=== PATIENT | female | born 2000 | race Caucasian/White ===

== ENCOUNTER 2024-06-02 23:02 | Emergency (ER) | payer BC, SELFPAY ==
[2024-06-02 23:05] VITALS: BP 134/94; PULSE 104; TEMP 36.6; O2SAT 98; BMI 40.4
--- NOTE | 2024-06-02 23:19 | ED_ITS ---
HPI HPI - General Adult General Chief complaint: Nausea/Vomiting/Diarrhea Stated complaint: VOMMITING Time Seen by Provider: 06/02/24 23:05 Source: patient Mode of arrival: walk-in Limitations: no limitations History of Present Illness HPI narrative: 23-year-old female presents to the emergency department for vomiting. She states that just over an hour ago she vomited and it looked dark and she was worried about the blood. Her mother recommended she come in. She is not complaining of abdominal pain and has had no blood in her stools and no dark color to them either. She has been quite nauseous on and off for the last week and perhaps the last month. LMP was in April, she does not know the date. Related Data Home Medications ?Medication ?Instructions ?Recorded ?Confirmed desvenlafaxine succinate 100 mg 100 mg PO Q24H 06/02/24 06/02/24 tablet,extended release 24 hr Previous Rx's ?Medication ?Instructions ?Recorded esomeprazole magnesium 20 mg 20 mg PO DAILY #20 caps 06/03/24 capsule,delayed release (Nexium) ondansetron 4 mg disintegrating 4 mg PO Q6H PRN nausea and 06/03/24 tablet vomiting #20 tabs Allergies Allergy/AdvReac Type Severity Reaction Status Date / Time No Known Drug Allergies Allergy Verified 06/02/24 23:12 Opioid HPI Opioid Management Most Recent Opioid Data: No Data to Display Review of Systems ROS Narrative A ten point review of systems is negative except as noted above. PFSH PFSH Social History Little interest or pleasure in doing things: not at all Feeling down, depressed, or hopeless: not at all Exam Narrative Exam Narrative: Nurses note and vital signs reviewed and patient is not hypoxic. General: The patient appears well and in no apparent distress. Patient is resting comfortably on cart. Skin: Warm, dry, no pallor noted. There is no rash noted. Head: Normocephalic, atraumatic Eye: Normal conjunctiva, no drainage Ears, Nose, Mouth, and Throat: oral mucosa is moist. Nares patent. Cardiovascular: Regular Rate and Rhythm Respiratory: Patient is in no distress, no accessory muscle use, lungs are clear to auscultation, no wheezing, rales or rhonchi Back: non-tender, no CVA tenderness bilaterally to percussion. GI: Obese and nontender, no tenderness in the epigastric area Musculoskeletal: The patient has no evidence of calf tenderness, no pitting edema, symmetrical pulses noted bilaterally Neurological: A&O, normal speech Psychiatric: Cooperative Constitutional Vital Signs, click to edit/add: Last Vital Signs Temp 98 F 06/02/24 23:05 Pulse 104 H 06/02/24 23:05 Resp 18 06/02/24 23:05 BP 134/94 H 06/02/24 23:05 Pulse Ox 98 06/02/24 23:05 O2 Del Method Room Air 06/02/24 23:05 Course Vital Signs Vital signs: Vital Signs Temperature 98 F 06/02/24 23:05 Pulse Rate 104 H 06/02/24 23:05 Respiratory Rate 18 06/02/24 23:05 Blood Pressure 134/94 H 06/02/24 23:05 Pulse Oximetry 98 06/02/24 23:05 Oxygen Delivery Method Room Air 06/02/24 23:05 Temperature 98 F 06/02/24 23:05 Pulse Rate 104 H 06/02/24 23:05 Respiratory Rate 18 06/02/24 23:05 Blood Pressure 134/94 H 06/02/24 23:05 Pulse Oximetry 98 06/02/24 23:05 Oxygen Delivery Method Room Air 06/02/24 23:05 Medical Decision Making MDM Narrative Medical decision making narrative: Her blood work is normal. Hemoglobin 13.6 and her test is negative. She was given IV fluids and IV Zofran and IV Pepcid here. She will be discharged home on Nexium and Zofran. She is being referred to general surgery for follow-up. Return to emergency department if symptoms worsen. Treatment diagnosis and follow-up were discussed with the patient. Differential Diagnosis Differential Diagnosis: Vomiting, GERD, ulcer Lab Data Lab results reviewed: Yes I reviewed the patient's lab results Labs: Lab Results 06/02/24 Range/Units 23:32 WBC 11.4 H (4.0-11.0) 10^3/uL RBC 5.00 (4.20-5.40) 10^6/uL Hgb 13.6 (12.0-16.0) g/dL Hct 40.8 (36.0-48.0) % MCV 81.6 (81.0-99.0) fL MCH 27.2 (26.7-34.0) pg MCHC 33.3 (29.9-35.2) g/dL RDW 14.6 (11.0-15.0) % Plt Count 360 (150-450) 10^3/uL MPV 9.9 (9.5-13.5) fL Neut % (Auto) 73.3 (43.0-75.0) % Lymph % (Auto) 17.6 L (20.5-60.0) % Terry % (Auto) 8.2 (1.7-12.0) % Eos % (Auto) 0.4 L (0.9-7.0) % Baso % (Auto) 0.3 (0.2-2.0) % Neut # (Auto) 8.4 H (1.4-6.5) 10^3/uL Lymph # (Auto) 2.0 (1.2-3.8) 10^3/uL Terry # (Auto) 0.9 H (0.3-0.8) 10^3/uL Eos # (Auto) 0.0 (0.0-0.7) 10^3/uL Baso # (Auto) 0.0 (0.0-0.1) 10^3/uL Abs Immat Gran (auto) 0.02 (0.00-0.03) 10^3/uL Imm/Tot Granulo (auto) 0.2 (0.0-0.5) % Sodium 135 L (136-145) mmol/L Potassium 3.4 L (3.5-5.1) mmol/L Chloride 102 (98-107) mmol/L Carbon Dioxide 23.9 (21.0-32.0) mmol/L Anion Gap 12.5 BUN 13.0 (7.0-18.0) mg/dL Creatinine 1.24 H (0.55-1.02) mg/dL Est GFR ( Amer) >60 (>=60 mL/min/1.73m^2) Est GFR (Non-Af Amer) 55 L (>=60 mL/min/1.73m^2) BUN/Creatinine Ratio 10.5 Glucose 105 (74-106) mg/dL Calcium 9.8 (8.5-10.1) mg/dL Serum HCG, Qual Negative (NEGATIVE) Discharge Plan Discharge Chief Complaint: Nausea/Vomiting/Diarrhea Clinical Impression: Nausea & vomiting Patient Disposition: Home, Self-Care Time of Disposition Decision: 00:40 Condition: Good Mode of Transportation: Private Vehicle Prescriptions / Home Meds: New ondansetron 4 mg tablet,disintegrating 4 mg PO Q6H PRN (Reason: nausea and vomiting) Qty: 20 0RF esomeprazole magnesium [Nexium] 20 mg capsule,delayed release(DR/EC) 20 mg PO DAILY Qty: 20 0RF No Action desvenlafaxine succinate 100 mg tablet extended release 24 hr 100 mg PO Q24H Print Language: Welsh Instructions: Acute Nausea and Vomiting (ED) Referrals: Tasneem Tovar MD [Primary Care Provider] - 1 week Wali Aldrich MD [Physician] - 1 week Wali Scanlon MD [Physician] - 1 week
[2024-06-02 23:38] LABS: Basophils Percent Auto 0.3 % (0.2-2.0); Eosinophils Percent Auto 0.4 % (0.9-7.0); Hematocrit 40.8 % (36.0-48.0); Hemoglobin 13.6 g/dL (12.0-16.0); Immature Granulocytes Abs Auto 0.02 10^3/uL (0.00-0.03); Immature Granulocytes Pct Auto 0.2 % (0.0-0.5); Lymphocytes Percent Auto 17.6 % (20.5-60.0); Mean Corpuscular HGB Conc 33.3 g/dL (29.9-35.2); Mean Corpuscular Hemoglobin 27.2 pg (26.7-34.0); Mean Corpuscular Volume 81.6 fL (81.0-99.0); Mean Platelet Volume 9.9 fL (9.5-13.5); Monocytes Absolute Auto 0.9 10^3/uL (0.3-0.8); Monocytes Percent Auto 8.2 % (1.7-12.0); Neutrophils Absolute Auto 8.4 10^3/uL (1.4-6.5); Neutrophils Percent Auto 73.3 % (43.0-75.0); Platelet Count 360 10^3/uL (150-450); Red Cell Distribution Width 14.6 % (11.0-15.0); White Blood Count 11.4 10^3/uL (4.0-11.0)
[2024-06-02] MEDS: 0.9 % SODIUM CHLORIDE 1,000 ML 1000 ML IV (23:42)
[2024-06-02] MEDS: ONDANSETRON PF 4 MG/2 ML VIAL IV (23:42)
[2024-06-02] MEDS: FAMOTIDINE/PF 20 MG/2 ML VIAL IV (23:42)
[2024-06-02 23:43] LABS: HCG Qualitative NEGATIVE (NEGATIVE); Internal Control Within Normal Limits
[2024-06-02 23:47] LABS: Anion Gap 12.5; BUN Creatinine Ratio 10.5; Calcium 9.8 mg/dL (8.5-10.1); Carbon Dioxide 23.9 mmol/L (21.0-32.0); Chloride 102 mmol/L (98-107); Estimated GFR (African America >60 (>=60 mL/min/1.73m^2); Estimated GFR (Non-African Ame 55 (>=60 mL/min/1.73m^2); Glucose 105 mg/dL (74-106); Potassium 3.4 mmol/L (3.5-5.1); Sodium 135 mmol/L (136-145)
== END 2024-06-03 00:49 | disposition home or self-care (01) ==
PROVIDERS: Emergency Provider Emergency Medicine; PCP Family Medicine
DX: R11.2 Nausea with vomiting, unspecified (principal)
CPT/HCPCS: 36415; 80048; 84703; 85025; 96361; 96374; 96375; 99284; J2405; J3490